=== PATIENT | male | born 1985 | race Caucasian/White ===

== ENCOUNTER 2017-08-01 22:15 | Observation (INO) | payer SELFPAY ==
[2017-08-01] MEDS ORDERED: HYDROMORPHONE HCL INJ/PF 2 MG/ML AMPULE IV ONE (22:32)
[2017-08-01] MEDS ORDERED: HYDROMORPHONE HCL INJ/PF 2 MG/ML AMPULE ONE (22:32)
[2017-08-01] MEDS ORDERED: NORMAL SALINE 1000 ML 1,000 ML IV ONE (22:33)
--- NOTE | 2017-08-01 22:46 | ER Document Report ---
ED General - General Chief Complaint: Chest Pain Stated Complaint: CHEST/FLANK INJURY Time Seen by Provider: 08/01/17 22:31 Notes: Patient is a 32-year-old male who presents with complaint of pain over his left back and left ribs. He is a qualitative researcher. 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 He did have a protective vest on. He did not hit his head. Denies headache. Denies neck pain. He denies any weakness or numbness into his extremities. He denies any abdominal pain. TRAVEL OUTSIDE OF THE [place] IN LAST 30 DAYS: No - Related Data Allergies/Adverse Reactions: No Known Allergies Allergy (Verified 08/01/17 22:19) Past Medical History - Social History Smoking Status: Never Smoker Frequency of alcohol use: None Drug Abuse: None Family History: Reviewed & Not Pertinent Review of Systems - Review of Systems Notes: My Normal Review Basic REVIEW OF SYSTEMS: CONSTITUTIONAL : Denies fever, chills, or sweats. Denies recent illness. EENT: Denies eye, ear, throat, or mouth pain or symptoms. Denies nasal or sinus congestion. Chest wall: Pain over left ribs. RESPIRATORY: Hurts to take in deep breath. GASTROINTESTINAL: Denies abdominal pain. Denies nausea, vomiting, or diarrhea. Denies constipation. Last BM: GENITOURINARY: Denies difficulty urinating, painful urination, burning, frequency, or blood in urine. MUSCULOSKELETAL: Denies neck or back pain or joint pain or swelling. SKIN: Denies rash or skin lesions. NEUROLOGICAL: Denies altered mental status or loss of consciousness. Denies headache. Denies weakness or paralysis or loss of use of either side. Denies problems with gait or speech. Denies sensory or motor loss. ALL OTHER SYSTEMS REVIEWED AND NEGATIVE. Physical Exam - Vital signs Vitals: Temp Pulse Resp BP Pulse Ox 97.6 F 79 32 H 127/75 H 100 08/01/17 22:22 08/01/17 22:22 08/01/17 22:22 08/01/17 22:22 08/01/17 22:22 - Notes Notes: General Appearance: Well nourished, alert, cooperative, no acute distress, moderate obvious discomfort. Vitals: reviewed, See vital signs table. Head: no swelling or tenderness to the head Eyes: PERRL, EOMI, Conjuctiva clear Mouth: No decreasd moisture Neck: Supple, no neck tenderness, No thyromegaly Chest wall: Pain palpation over left ribs that is approximately ribs 5-10. Pain does radiate around to the posterior rib angles. Small amount of redness and abrasion over the skin over these ribs. Bedside ultrasound shows normal lung sliding. Back: No tenderness to palpation over thoracic or lumbar spine. Lungs: No wheezing, No rales, No rhonci, No accessory muscle use, good air exchange bilaterally. Heart: Normal rate, Regular rythm, No murmur, no rub Abdomen: Normal BS, soft, No rigidity, No abdominal tenderness to palpation, No guarding, no rebound, no abdominal masses, no organomegaly. Negative bedside FAST exam. Extremities: strength 5/5 in all extremities, good pulses in all extremities, no swelling or tenderness in the extremities, no edema. Skin: warm, dry, appropriate color, no rash Neuro: speech clear, oriented x 3, normal affect, responds appropriately to questions. Course - Re-evaluation Re-evalutation: 08/02/17 01:19 Patient is multiple rib fractures on CT scan. There is no pneumothorax. No evidence of pulmonary hemorrhage at this time. His pain is quite intractable. I did speak with Dr. Russell, general surgeon, who agrees to admit the patient for management of his rib fractures. Dictation of this chart was performed using voice recognition software; therefore, there may be some unintended grammatical errors. - Vital Signs Vital signs: Temp Pulse Resp BP Pulse Ox 97.6 F 79 32 H 127/75 H 100 08/01/17 22:22 08/01/17 22:22 08/01/17 22:22 08/01/17 22:22 08/01/17 22:22 - Laboratory Result Diagrams: 08/01/17 22:40 08/01/17 22:40 Laboratory results interpreted by me: 08/01/17 08/01/17 22:40 22:40 WBC 13.3 H RDW 14.1 H Seg Neutrophils % 84.3 H Lymphocytes % 9.8 L Absolute Neutrophils 11.2 H Sodium 148.4 H Discharge - Discharge Clinical Impression: Ribs, multiple fractures Qualifiers: Encounter type: initial encounter Fracture type: closed Laterality: left Qualified Code(s): S22.42XA - Multiple fractures of ribs, left side, initial encounter for closed fracture Condition: Stable Disposition: ADMITTED OBSERVATION Admitting Provider: Surgicalist Unit Admitted: Surgical Floor
[2017-08-01 23:00] LABS: ABSOLUTE BASOPHILS # (AUTO) 0.1 10^3/uL (0.0-0.2); ABSOLUTE EOSINOPHILS # (AUTO) 0.2 10^3/uL (0.0-0.6); ABSOLUTE LYMPHOCYTES (AUTO) 1.3 10^3/uL (0.5-4.7); ABSOLUTE MONOCYTES (AUTO) 0.5 10^3/uL (0.1-1.4); ABSOLUTE NEUT (AUTO) 11.2 10^3/uL (1.7-8.2); BASOPHILS % (AUTO) 0.4 % (0-2); EOSINOPHILS % (AUTO) 1.5 % (0-6); HEMATOCRIT 42.4 % (37.9-51.0); HEMOGLOBIN 14.1 g/dL (13.5-17.0); LYMPHOCYTES % (AUTO) 9.8 % (13-45); MEAN CORPUSCULAR HEMOGLOBIN 29.4 pg (27.0-33.4); MEAN CORPUSCULAR HGB CONC 33.4 g/dL (32.0-36.0); MEAN CORPUSCULAR VOLUME 88 fl (80-97); PLATELET COUNT 310 10^3/uL (150-450); RED BLOOD COUNT 4.81 10^6/uL (4.35-5.55); RED CELL DISTRIBUTION WIDTH 14.1 % (11.5-14.0); SEGMENTED NEUTROPHILS % (AUTO) 84.3 % (42-78); TOTAL CELLS COUNTED % (AUTO) 100 %; WHITE BLOOD COUNT 13.3 10^3/uL (4.0-10.5)
[2017-08-01 23:16] LABS: ANION GAP 18 (5-19); BLOOD UREA NITROGEN 12 mg/dL (7-20); CALCIUM 9.1 mg/dL (8.4-10.2); CARBON DIOXIDE 25 mmol/L (22-30); CHLORIDE 105 mmol/L (98-107); GLUCOSE 108 mg/dL (75-110); POTASSIUM 4.1 mmol/L (3.6-5.0); SODIUM 148.4 mmol/L (137-145)
[2017-08-01] MEDS ORDERED: FENTANYL CITRATE INJ/PF 100 MCG/2 ML AMPUL IV ONE (23:22)
[2017-08-02] MEDS ORDERED: MORPHINE SULFATE 10 MG/ML INJ IV ONE (00:09)
--- NOTE | 2017-08-02 00:38 | RADIOLOGY REPORT (SQ) ---
EXAM DESCRIPTION: XR CHEST 1 VIEW CLINICAL HISTORY: 32 years Male, chest injury/DB COMPARISON: None. NUMBER OF VIEWS/TECHNIQUE: 1/AP FINDINGS: Adequate lung volume, clear parenchyma, normal cardiac silhouette, and intact bony thorax. IMPRESSION: No acute cardiopulmonary findings.
--- NOTE | 2017-08-02 00:45 | RADIOLOGY REPORT (SQ) ---
EXAM DESCRIPTION: CT CHEST WITH IV CONTRAST, CT ABDOMEN PELVIS WITH IV CONTRAST CLINICAL HISTORY: 32 years Male, trauma Comparison: None. Technique: IV contrast. Coronal and sagittal reformat. This exam was performed according to our departmental dose-optimization program, which includes automated exposure control, adjustment of the mA and/or kV according to patient size and/or use of iterative reconstruction technique.[facility]: Dose Right [facility]: CareDose [facility]: Dose Right [facility]: Teradose 4D [facility]: Smart [employer] LIMITATIONS: None. Findings: Left sixth, seventh, and eighth rib fractures with minimal displacement. Mild T5 anterior vertebral compression deformity.Small atelectasis-pulmonary contusion of the left lower lobe. Small soft tissue emphysema in the lateral left hemithorax. Abdominal and pelvic structures appear intact. No free fluid. Inferior neck, axillae, mediastinum, airway, heart, liver, gallbladder, pancreas, spleen, adrenals, renal system, gastrointestinal tract, pelvic organs, lymphatics, vasculature, and musculoskeleton appear otherwise unremarkable. Impression: Left sixth, seventh, and eighth rib fractures with minimal displacement. Mild T5 anterior vertebral compression deformity.Small atelectasis-pulmonary contusion of the left lower lobe. Small soft tissue emphysema in the lateral left hemithorax.
[2017-08-02] MEDS ORDERED: HYDROMORPHONE HCL INJ/PF 2 MG/ML AMPULE IV ONE ×2 (00:53→04:07)
[2017-08-02] MEDS ORDERED: HYDROMORPHONE HCL INJ/PF 2 MG/ML AMPULE IV PRN ×2 (05:10→12:30)
[2017-08-02] MEDS: KETOROLAC TROMETHAMINE INJ/PF 30 MG/1 ML SDV IV SCH ×2 (05:45→14:12)
[2017-08-02] MEDS ORDERED: ONDANSETRON HCL INJ/PF 4 MG/2 ML SDV IV PRN (08:09)
[2017-08-02] MEDS ORDERED: OXYCODONE HCL IR 5 MG TABLET PO PRN (08:15)
[2017-08-02] MEDS: DOCUSATE SODIUM 100 MG CAPSULE PO SCH ×2 (09:30→17:41)
[2017-08-02] MEDS ORDERED: ENOXAPARIN SODIUM INJ 40 MG/0.4 ML DISP.SYRIN SUBCUT SCH (10:00)
[2017-08-02] MEDS ORDERED: FAMOTIDINE 20 MG TABLET PO SCH (10:00)
--- NOTE | 2017-08-02 12:48 | PDOC H&P ---
History of Present Illness Admission Date/PCP: 08/02/17 01:44 Patient complains of: Chest pain and shortness of breath. Trauma patient. Bull riding accident. History of Present Illness: DAVID CHANG is a 32 year old male who was bull riding yesterday, fell off the bull, and was stepped on. The animal stepped on his left chest, and now the patient experiences sharp/stabbing pain in the left chest with moderate shortness of breath. The patient's pain is constant and severe. The patient was given several doses of medication in the emergency department, however his pain could not be controlled. The patient was admitted to my service for analgesia and pulmonary toilet. The patient denies fevers, chills, paresthesias , dizziness, orthostasis, extremity pain, long bone deformity, or other sign of traumatic injury. Nothing makes his pain better. Movement and breathing make his pain worse. The patient did not hit his head, he was not knocked out. Past Medical History Medical History: None Past Surgical History Past Surgical History: Reports: None Social History Smoking Status: Unknown if Ever Smoked Frequency of Alcohol Use: Occasional Drugs: None - Advance Directive Resuscitation Status: Full Code Family History Family History: Reviewed & Not Pertinent Parental Family History Reviewed: Yes Children Family History Reviewed: Yes Sibling(s) Family History Reviewed.: Yes Medication/Allergy Home Medications: No Home Medications 08/02/17 Allergies/Adverse Reactions: No Known Allergies Allergy (Verified 08/01/17 22:19) Review of Systems Constitutional: ABSENT: chills, fatigue, fever(s), weakness Eyes: ABSENT: visual disturbances Ears: ABSENT: hearing changes Nose, Mouth, and Throat: ABSENT: sore throat Cardiovascular: PRESENT: chest pain - Left lateral chest, dyspnea on exertion Respiratory: PRESENT: dyspnea Gastrointestinal: ABSENT: abdominal pain, bloating, melena, nausea, vomiting Genitourinary: ABSENT: dysuria Musculoskeletal: ABSENT: deformity Integumentary: ABSENT: pruritus, rash Neurological: ABSENT: abnormal movements, abnormal speech, confusion, convulsions, dizziness, memory loss Psychiatric: ABSENT: anxiety, depression Endocrine: ABSENT: cold intolerance, heat intolerance Hematologic/Lymphatic: ABSENT: easy bleeding, easy bruising, lymphadenopathy Physical Exam Vital Signs: Temp Pulse Resp BP Pulse Ox 97.8 F 70 16 129/73 H 100 08/02/17 10:01 08/02/17 12:09 08/02/17 12:09 08/02/17 12:09 08/02/17 12:09 General appearance: PRESENT: mild distress - Respiratory, well-developed, well- nourished Head exam: PRESENT: atraumatic, normocephalic Eye exam: PRESENT: EOMI, PERRLA. ABSENT: conjunctival injection, scleral icterus Mouth exam: PRESENT: moist, neck supple Teeth exam: ABSENT: poor dentation Neck exam: ABSENT: lymphadenopathy, meningismus, tenderness, thyromegaly, tracheal deviation Respiratory exam: PRESENT: chest wall tenderness - Left side, decreased breath sounds Cardiovascular exam: PRESENT: RRR Pulses: PRESENT: normal radial pulses Vascular exam: PRESENT: normal capillary refill. ABSENT: pallor GI/Abdominal exam: PRESENT: soft. ABSENT: distended, guarding, tenderness Rectal exam: PRESENT: deferred Extremities exam: ABSENT: joint swelling, tenderness Musculoskeletal exam: PRESENT: normal inspection. ABSENT: deformity Neurological exam: PRESENT: alert, awake, oriented to person, oriented to place , oriented to time, CN II-XII grossly intact. ABSENT: motor sensory deficit Psychiatric exam: ABSENT: agitated, anxious Skin exam: ABSENT: cyanosis, erythema, jaundice, pallor Results Impressions: Chest X-Ray 08/01/17 00:00 IMPRESSION: No acute cardiopulmonary findings. Assessment & Plan - Diagnosis (1) Ribs, multiple fractures Qualifiers: Encounter type: initial encounter Fracture type: closed Laterality: left Qualified Code(s): S22.42XA - Multiple fractures of ribs, left side, initial encounter for closed fracture - Inpatient Certification Medical Necessity: Need Close Monitoring Due to Risk of Patient Decompensation - respiratory, Need for Pain Control - Plan Summary Plan Summary: This is a 32-year-old male status post bull riding injury/accident. He has several mildly displaced rib fractures on the left. The patient reports significant amounts of pain and difficulty breathing. His pain could not be controlled in the emergency department, and he was admitted for pain control and monitoring of his respiratory status. I will start the patient on oxycodone every 4 hours with breakthrough Dilaudid. I will also start the patient on scheduled Toradol. The patient should work with an incentive spirometer every hour to prevent pneumonia. Once the patient's pain is controlled and his breathing is adequate, he may be discharged. The patient is in agreement with the treatment plan.
--- NOTE | 2017-08-02 18:56 | PDOC DISCHARGE SUMMARY ---
General - Admit/Disc Date/PCP Admission Date/Primary Care Provider: 08/02/17 01:44 Discharge Date: 08/02/17 - Discharge occurred greater than 8 hours from admission. - Additional Information Resuscitation Status: Full Code Discharge Diet: As Tolerated Discharge Activity: Slowly Increase Activity Prescriptions: Oxycodone HCl [Oxy-Ir 5 mg Tablet] 10 mg PO Q4HP PRN #60 tablet PRN Reason: For Pain Scale 2-4 Home Medications: Oxycodone HCl [Oxy-Ir 5 mg Tablet] 10 mg PO Q4HP PRN #60 tablet 08/02/17 History of Present Illness Patient complains of: Chest pain and shortness of breath. History of Present Illness: DAVID CHANG is a 32 year old male who was bull riding yesterday, fell off the bull, and was stepped on. The animal stepped on his left chest, and now the patient experiences sharp/stabbing pain in the left chest with moderate shortness of breath. The patient's pain is constant and severe. The patient was given several doses of medication in the emergency department, however his pain could not be controlled. The patient was admitted to my service for analgesia and pulmonary toilet. The patient denies fevers, chills, paresthesias , dizziness, orthostasis, extremity pain, long bone deformity, or other sign of traumatic injury. Nothing makes his pain better. Movement and breathing make his pain worse. The patient did not hit his head, he was not knocked out. Hospital Course Hospital Course: The patient was admitted to the hospital and begun on intravenous and oral analgesia. The patient was also given anti-inflammatory drugs. Patient's pain decreased significantly after pain medication administration. The patient was achieving greater than 1500 on his incentive spirometer. Patient is ambulating. At this point, it was felt that the patient had reached maximal hospital benefit and was fit for discharge. Physical Exam Vital Signs: Temp Pulse Resp BP Pulse Ox 98.6 F 75 18 127/72 H 99 08/02/17 16:43 08/02/17 16:43 08/02/17 16:43 08/02/17 16:43 08/02/17 16:43 Results Impressions: Chest X-Ray 08/01/17 00:00 IMPRESSION: No acute cardiopulmonary findings. Qualifiers - * PATIENT BEING DISCHARGED WITH ANY OF THE FOLLOWING DIAGNOSIS: No Plan Time Spent: Less than 30 Minutes
[2017-08-02 20:21] VITALS: BP 116/67
== END 2017-08-02 19:55 | disposition home or self-care (01) ==
LOC: ER 22:15 → EH 08-02 01:44 → 2N 08-02 12:10
PROVIDERS: ATTEND Surgery
DX: S22.42XA Multiple fractures of ribs, left side, initial encounter for closed fracture (principal); V80.018A Animal-rider injured by fall from or being thrown from other animal in noncollision accident, initial encounter; Y93.I9 Activity, other involving external motion; R06.02 Shortness of breath
CPT/HCPCS: 96376; 99285; 96361; 96374; 96375; 36415; 85025; 80048; 71045; 71260; 74177; G0378 ×2; J3010; J1885; J2270; J1650; J1170 ×2; J3490; J7030